=== PATIENT | male | born 1950 ===

== ENCOUNTER 2022-01-17 08:46 | Outpatient (CLI) | payer OTHER ==
[~2022-01-17 08:46] MED LIST: CHILDREN'S ASPI81 MG PO; CLONAZEP PO; VASOTEC20 M1 PO
[2022-01-20] MEDS ORDERED: CLONAZEPAM0.5 MG (08:56)
== END 2022-01-17 12:22 | disposition home or self-care (01) ==
LOC: LAB 08:46
PROVIDERS: ATTEND Orthopaedic Surgery Sports Medicine
DX: Z20.828 Contact with and (suspected) exposure to other viral communicable diseases (principal)